=== PATIENT | male | born 1990 | race African-American/Black ===

== ENCOUNTER 2020-02-16 09:53 | Emergency (ER) | payer OTHER ==
[~2020-02-16] VITALS: Ht 175.3 cm; Wt 77.1 kg
[~2020-02-16 09:53] MED LIST: NORCO 5-325 TA1 EACH PO; PREDNISONE 10 M10 MG PO; VALIUM2 MG PO
[2020-02-16 11:33] VITALS: BP 122/73
[2020-02-16 11:57] LABS: URINE BILIRUBIN NEGATIVE (Negative); URINE BLOOD NEGATIVE (Negative); URINE CLARITY CLEAR; URINE COLOR YELLOW; URINE GLUCOSE-RANDOM* NEGATIVE (Negative); URINE KETONES NEGATIVE (Negative); URINE LEUKOCYTES-REFLEX TRACE (Negative); URINE NITRITE-REFLEX NEGATIVE (Negative); URINE PROTEIN (DIPSTICK) NEGATIVE (Negative)
== END 2020-02-16 11:34 | disposition home or self-care (01) ==
LOC: ER 09:53
PROVIDERS: Emergency Medicine
DX: R30.0 Dysuria (principal); Z79.899 Other long term (current) drug therapy